=== PATIENT | female | born 1960 | race Hispanic/Latino ===

== ENCOUNTER → 2019-09-27 | Outpatient (CLI) | payer OTHER | END | disposition home or self-care (01) | LOC: RAH 08:26 | PROVIDERS: ATTEND Internal Medicine | DX: M17.12 Unilateral primary osteoarthritis, left knee (principal) | CPT/HCPCS: 73562 ==

== ENCOUNTER → 2019-10-19 | Outpatient (CLI) | payer OTHER | END | disposition home or self-care (01) | LOC: RAH 13:37 | PROVIDERS: ATTEND Internal Medicine | DX: Z12.31 Encounter for screening mammogram for malignant neoplasm of breast (principal) | CPT/HCPCS: 77067 ==

== ENCOUNTER → 2019-11-20 | Outpatient (CLI) | payer OTHER | END | disposition home or self-care (01) | LOC: RAH 14:11 | PROVIDERS: ATTEND Internal Medicine | DX: R05 Cough (principal); M47.814 Spondylosis without myelopathy or radiculopathy, thoracic region | CPT/HCPCS: 71046 ==

== ENCOUNTER → 2021-02-04 | Outpatient (CLI) | payer OTHER | END | disposition home or self-care (01) | LOC: RAH 14:00 | PROVIDERS: ATTEND Internal Medicine | DX: Z12.31 Encounter for screening mammogram for malignant neoplasm of breast (principal) | CPT/HCPCS: 77067 ==

== ENCOUNTER → 2021-08-05 | Outpatient (CLI) | payer OTHER | END | disposition home or self-care (01) | LOC: RAH 14:39 | PROVIDERS: ATTEND Internal Medicine | DX: E04.9 Nontoxic goiter, unspecified (principal) | CPT/HCPCS: 76536 ==

== ENCOUNTER → 2023-02-22 | Outpatient (CLI) | payer OTHER | END | disposition home or self-care (01) | LOC: RAH 10:01 | PROVIDERS: ATTEND Internal Medicine | DX: Z12.31 Encounter for screening mammogram for malignant neoplasm of breast (principal) | CPT/HCPCS: 77067 ==

== ENCOUNTER → 2023-06-10 | Outpatient (CLI) | payer OTHER | END | disposition home or self-care (01) | LOC: RAH 13:58 | PROVIDERS: ATTEND Internal Medicine | DX: R22.1 Localized swelling, mass and lump, neck (principal); M54.2 Cervicalgia | CPT/HCPCS: 76536 ==

== ENCOUNTER → 2024-02-24 | Outpatient (CLI) | payer OTHER | END | disposition home or self-care (01) | LOC: RAH 09:59 | PROVIDERS: ATTEND Internal Medicine | DX: Z12.31 Encounter for screening mammogram for malignant neoplasm of breast (principal); R92.30 Dense breasts, unspecified | CPT/HCPCS: 77067 ==

== ENCOUNTER → 2025-01-15 | Outpatient (CLI) | payer OTHER ==
--- NOTE | 2025-01-15 11:03 | HMCIMG ---
PROCEDURE: MAMMO DX BILATERAL, US BREAST BILATERAL HISTORY: Left breast lump COMPARISON: None TECHNIQUE: Bilateral digital diagnostic mammogram with CAD was performed. No additional views were obtained. Bilateral breast ultrasound study was performed. FINDINGS: The breasts are extremely dense which lowers the sensitivity of mammogram. There is nodular density at 12:00 of left breast with ultrasound findings corresponding to the left breast mass measuring 2.8 x 2.4 cm. Ultrasound guidance core biopsy is recommended for complete evaluation. No other cystic or hypoechoic mass is seen of either breast otherwise. There are bilateral axillary lymph nodes with right measuring 13 mm and left measuring 19 mm. There is no evidence of a dominant mass, or suspicious microcalcification. There is no evidence of nipple retraction or skin thickening. IMPRESSION: 1. There is nodular density at 12:00 of left breast with ultrasound findings corresponding to the left breast mass measuring 2.8 x 2.4 cm. Ultrasound guidance core biopsy is recommended for complete evaluation. BI-RADS: CATEGORY 4: SUSPICIOUS ABNORMALITY. BIOPSY SHOULD BE CONSIDERED Recommend monthly self breast exam as well as annual clinical examination. A negative x-ray should not delay biopsy if a dominant or clinically suspicious mass is present, since 8-10% of cancers are not identified by mammography. Dense breasts particularly, may obscure an underlying neoplasm. Some of these may be detected clinically and therefore, clinical examination is an essential part of breast evaluation.
== END | disposition home or self-care (01) ==
LOC: RAH 08:51
PROVIDERS: ATTEND Nurse Practitioner Family
DX: N63.25 Unspecified lump in the left breast, overlapping quadrants (principal); R92.343 Mammographic extreme density, bilateral breasts; N64.4 Mastodynia
CPT/HCPCS: 77066

== ENCOUNTER → 2025-02-11 | Outpatient (CLI) | payer OTHER ==
[2025-02-11 08:11] LABS: CREATININE 0.7 mg/dL (0.5-1.0)
--- NOTE | 2025-02-11 09:25 | NUR ---
U/S GD LT BREAST BX TOLERATED PROCEDURE. PERFORMED BY DR Karley HARRISON. PUNCTURE SITE TO LT BREAST. x4 SPECIMEN REMOVED AND SENT TO LAB. END OF PROCEDURE AT 0905. DRESSING DRY AND INTACT. NO BLEEDING NOTED. DISCHARGE INSTRUCTIONS GIVEN. VERBALIZED UNDERSTANDING. DENIES PAIN. A&O. DISCHARGE VIA AMBULATORY WITH CANE. Addendum: 02/11/25 at 1528 by RYAN NUÑEZ RN RN BREAST TISSUE MARKER DEPLOYED AT END OF PROCEDURE
--- NOTE | 2025-02-11 10:23 | HMCIMG ---
US BREAST BX 1ST LESION IR HISTORY: Left breast nodule COMPARISON: None TECHNIQUE: Informed consent was obtained. Risks and benefits were explained to the patient. A timeout was performed. Patient was prepped and draped in a sterile fashion. Local anesthetics was given as required. Under ultrasound guidance, left breast mass at 11:30 o'clock was localized. Ultrasound guidance core biopsy was performed with 14-gauge Bard biopsy gun with coaxial arrangement. At the end of the procedure, microsurgical clip was left in place. FINDINGS: 4 core biopsy samples were obtained. Patient tolerated procedure without complication. Patient left the department in good condition. IMPRESSION: 1. Uncomplicated ultrasound guidance, core biopsy with microsurgical clip placement.
== END ==
LOC: RAH 07:23
PROVIDERS: ATTEND Obstetrics & Gynecology
DX: N63.25 Unspecified lump in the left breast, overlapping quadrants (principal); R92.2 Inconclusive mammogram; K21.9 Gastro-esophageal reflux disease without esophagitis; J45.909 Unspecified asthma, uncomplicated; E11.9 Type 2 diabetes mellitus without complications; E03.9 Hypothyroidism, unspecified; Z88.0 Allergy status to penicillin; Z79.899 Other long term (current) drug therapy
CPT/HCPCS: 19083; 84520; 82565; 36415; 88305; A4215 ×2; A4648

== ENCOUNTER → 2025-07-31 | Outpatient (CLI) | payer OTHER ==
--- NOTE | 2025-07-31 16:23 | HMCIMG ---
EXAM: CR Right Knee, 2 View. CLINICAL HISTORY: Osteoarthritis, right knee pain. COMPARISON: None provided. FINDINGS: BONES: No acute fracture or aggressive appearing osseous lesion. Moderate osteoarthritic changes with subchondral sclerosis and periarticular osteophyte formation. JOINTS: Joint space narrowing, most pronounced in the medial compartment. No significant joint effusion. SOFT TISSUES: Soft tissues appear unremarkable. IMPRESSION: 1. No acute osseous injury. 2. Moderate osteoarthritis of the right knee, most pronounced in the medial compartment. /[place]
== END | disposition home or self-care (01) ==
LOC: RAH 11:39
PROVIDERS: ATTEND Internal Medicine
DX: M17.11 Unilateral primary osteoarthritis, right knee (principal); M25.761 Osteophyte, right knee
CPT/HCPCS: 73560

== ENCOUNTER → 2025-10-14 | Outpatient (CLI) | payer OTHER ==
--- NOTE | 2025-10-15 07:07 | HMCIMG ---
EXAM: CR Lumbar Spine, 3 Views. CLINICAL HISTORY: Acute midline low back pain without sciatica. COMPARISON: Radiograph of the lumbar spine dated 12/27/2024. FINDINGS: BONES: A defect is present in the pars interarticularis of the L5 vertebra. Mild degenerative changes are present in the visualized bones. ALIGNMENT: Grade I anterior listhesis of L5 over S1. DISCS / DEGENERATIVE CHANGES: There is a moderate reduction in the disc space at the L5-S1 level. The remaining disc spaces are preserved. SOFT TISSUES: The soft tissues are unremarkable. IMPRESSION: 1. Grade I anterolisthesis of L5 on S1 due to L5 pars interarticularis defect. Recommend MRI LS spine. 2. Moderate L5-S1 disc space narrowing. /[place]
== END | disposition home or self-care (01) ==
LOC: RAH 17:02
PROVIDERS: ATTEND Nurse Practitioner Family
DX: M47.817 Spondylosis without myelopathy or radiculopathy, lumbosacral region (principal); M43.17 Spondylolisthesis, lumbosacral region; M48.07 Spinal stenosis, lumbosacral region; M51.370 Other intervertebral disc degeneration, lumbosacral region with discogenic back pain only
CPT/HCPCS: 72100